=== PATIENT | female | born 1965 | race African-American/Black ===

== ENCOUNTER → 2016-08-19 | Day surgery (SDC) | payer OTHER ==
[2016-08-19 06:34] LABS: HCT 40.5 % (37.0-47.0); HGB 13.1 g/dl (12.5-16.0); MCH 26.4 pg (25.0-31.0); MCHC 32.3 g/dL (32.0-36.0); MCV 81.7 fL (78.0-100.0); MPV 9.5 fL (6.0-9.5); RBC 4.96 M/uL (4.20-5.40); RDW 15.9 % (11.5-14.0); WBC 7.7 K/uL (4.0-10.5)
[2016-08-19 06:56] LABS: ALBUMIN 4.2 g/dL (3.5-5.0); BILIRUBIN - TOTAL 0.2 mg/dL (0.1-1.0); CREATININE 0.8 mg/dL (0.5-1.0); POTASSIUM 4.1 mmol/L (3.5-5.1); TOTAL PROTEIN 7.2 g/dL (6.4-8.3)
== END | disposition home or self-care (01) ==
LOC: FAS 05:55
PROVIDERS: Orthopaedic Surgery
DX: M16.12 Unilateral primary osteoarthritis, left hip (principal); E11.9 Type 2 diabetes mellitus without complications; E66.9 Obesity, unspecified; F32.9 Major depressive disorder, single episode, unspecified; M50.20 Other cervical disc displacement, unspecified cervical region; Z88.6 Allergy status to analgesic agent; Z79.84 Long term (current) use of oral hypoglycemic drugs; Z90.49 Acquired absence of other specified parts of digestive tract; Z79.899 Other long term (current) drug therapy; Z98.890 Other specified postprocedural states
CPT/HCPCS: 36415; 76000; 80053; 84703; J1040; J2704; Q9962